=== PATIENT | female | born 1975 | race African-American/Black ===

== ENCOUNTER 2017-10-28 11:40 | Emergency (ER) | payer OTHER ==
[2017-10-28] MEDS ORDERED: cefTRIAXone SODIUM 1 GM VIAL IM ONE (12:23)
[2017-10-28] MEDS ORDERED: AZITHROMYCIN 1 GM PACKET PO ONE (12:24)
[2017-10-28 12:28] LABS: APPEARANCE,URINE CLOUDY (CLEAR); COLOR,URINE AMBER (YELLOW); OCCULT BLOOD,URINE 2+ (NEGATIVE); PH URINE 5.5 (5.0 - 8.0)
[2017-10-28] MEDS ORDERED: AZITHROMYCIN 250 MG TABLET PO ONE (12:28)
[2017-10-28] MEDS ORDERED: Lidocaine 1% 5ml(IM or SUTURE)(PAIN CLINIC) ONE (12:29)
--- NOTE | 2017-10-28 12:30 | ED Physician Documentation ---
Female Urogenital Problems - HISTORIAN Historian: patient - HPI Stated Complaint: vag discharge Chief Complaint: Female Urogenital Problems Additional Information: 3 weeks vaginal burning itching and brownish foul odor-denies questionable sex contact except boyfriend of 3 yrw. has not had similar before but does have inactives herpes genitalia Severity: moderate Location of Pain: vulvar pain, vaginal pain - Vaginal Bleeding Sexual History: active - Associated Symptoms Urinary Symptoms: frequent urination, discomfort w/ urination Discharge: vaginal discharge, odorous discharge - ROS CONST: no problems GI/: denies: nausea, vomiting NEURO/PSYCH: none MS/SKIN/LYMPH: none - PAST HX Past History: other (genital herpes bipolar schizophrenic depression-only meds are psyche meds) Surgeries/Procedures: Immunizations: UTD Allergies/Adverse Reactions: Allergies Allergy/AdvReac Type Severity Reaction Status Date / Time oxycodone [Oxycodone] Allergy Severe Rash Verified 10/28/17 12:02 Home Medications: Ambulatory Orders Medication Instructions Recorded Acyclovir [Zovirax] 400 mg PO 5XDAY #25 capsule 06/23/15 Buspirone HCl [Buspar] 10 mg PO TID 06/23/15 Citalopram Hydrobromide 30 mg PO DAILY 06/23/15 [Citalopram HBr] Haloperidol [Haloperidol] 2 mg PO PM 06/23/15 Wilberforce Carbonate [Wilberforce 300 mg PO BID 06/23/15 Carbonate ER] Trazodone HCl [Desyrel] 150 mg PO PM 06/23/15 Ciprofloxacin HCl [Cipro] 500 mg PO TID #30 tablet 10/28/17 - SOCIAL HX Smoking History: non-smoker Alcohol Use: none Drug Use: none - FAMILY HX Family History: none - VITAL SIGNS Vital Signs: Vital Signs Temp Pulse Resp BP Pulse Ox 98.1 F 69 14 123/80 96 10/28/17 11:46 10/28/17 11:46 10/28/17 11:46 10/28/17 11:46 10/28/17 11:46 - REVIEWED ASSESSMENTS Nursing Assessment Reviewed: Yes Vitals Reviewed: Yes ED Results Lab/Radiology - Orders Orders: ED Orders Category Date Time Status GC [CHLAMYDIA & GONORRHOEAE] Stat Lab 10/28/17 Ordered URINALYSIS Routine Lab 10/28/17 Ordered Azithromycin [Zithromax] Med 10/28/17 12:24 Once 1 gm PO NOW ONE cefTRIAXone SODIUM [Rocephin] Med 10/28/17 12:23 Once 1 gm IM NOW ONE Female Urogenital Problems - EXAM General Appearance: moderate distress EENT: eye inspection normal Neck: nml inspection Respiratory: no resp. distress, breath sounds nml CVS: reg rate & rhythm, heart sounds normal Abdomen: soft, non-tender Back: non-tender, painless ROM Extremities: non-tender, normal range of motion Neuro: oriented X3, motor nml, sensation nml, mood/affect nml, cognition normal Discharge Clincal Impression: UTI (urinary tract infection), genital herpes, Possible exposure to STD Referrals: Primary Doctor,No [Primary Care Provider] - 2 Days Comments: HOME MEDS AWAIT CULTURES Condition: Good Disposition: 01 HOME, SELF-CARE Decision to Admit: NO Decision Time: 12:38
[2017-10-28 12:54] VITALS: BP 120/78
== END 2017-10-28 12:50 | disposition home or self-care (01) ==
LOC: ED 11:40
DX: N39.0 Urinary tract infection, site not specified (principal); B00.9 Herpesviral infection, unspecified
CPT/HCPCS: 81002; 87086; 87491; 87591; J0456; J0696; 96372; 99283

== ENCOUNTER 2018-01-20 09:57 | Outpatient (CLI) | payer OTHER ==
[2018-01-20 10:23] LABS: BASOPHILS % 0.2 (0.0-1.5); EOSINOPHILS % 2.4 % (0.0-6.8); MEAN CORPUSCULAR HEMOGLOBIN 27.6 pg (28.0-34.0); MONOCYTES % 6.2 % (0.0-11.0); NEUTROPHILS # 2.7 # k/uL (1.4-7.7)
[2018-01-20 10:51] LABS: eGFR (African) > 60; eGFR (Non-African) > 60
== END 2018-01-20 10:00 ==
LOC: LAB 09:57
PROVIDERS: ATTEND Psychiatry & Neurology Psychiatry
DX: Z79.899 Other long term (current) drug therapy (principal)
CPT/HCPCS: 36415; 80053; 80061; 80164; 82248; 85025